=== PATIENT | male | born 1980 | race African-American/Black ===

== ENCOUNTER 2017-01-30 17:56 | Emergency (ER) | payer BC, OTHER ==
[2017-01-30 18:03] VITALS: BP 115/75; PULSE 68; TEMP 98; BMI 27.8
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
== END 2017-01-30 21:40 | disposition home or self-care (01) ==
LOC: JERFT 17:56
DX: M62.838 Other muscle spasm (principal); V43.52XA Car driver injured in collision with other type car in traffic accident, initial encounter; Y93.89 Activity, other specified; Y92.410 Unspecified street and highway as the place of occurrence of the external cause
CPT/HCPCS: 72050-TC; 99281-25

== ENCOUNTER 2017-02-09 12:33 | Emergency (ER) | payer OTHER, BC ==
[2017-02-09 12:52] VITALS: BP 138/75; PULSE 77; TEMP 98; BMI 27.8
[2017-02-09] MEDS ORDERED: KETOROLAC TROMETHAMINE 60 MG/2 ML VIAL IM ONE (13:12)
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
== END 2017-02-09 13:54 | disposition home or self-care (01) ==
LOC: JERFT 12:33
PROC: 3E0233Z Introduction of Anti-inflammatory into Muscle, Percutaneous Approach (ICD-10-PCS; principal; 2017-02-09)
DX: M75.42 Impingement syndrome of left shoulder (principal); X50.0XXA Overexertion from strenuous movement or load, initial encounter; X50.9XXA Other and unspecified overexertion or strenuous movements or postures, initial encounter; Y93.89 Activity, other specified; Y92.89 Other specified places as the place of occurrence of the external cause; Y99.0 Civilian activity done for income or pay
CPT/HCPCS: 99281-25

== ENCOUNTER 2017-03-04 15:50 | Emergency (ER) | payer OTHER ==
[2017-03-04 16:23] VITALS: BMI 27.8
[2017-03-04] MEDS ORDERED: SODIUM CHLORIDE 1,000 ML IV STA (16:38)
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
[2017-03-04 17:55] LABS: BASOPHIL 0.3 % (0-2.0); EOSINOPHIL 1.3 % (0-4.5); MCHC 33.3 g/dl (32.0-35.9); MEAN CELL VOLUME 93.3 fl (80-96); MEAN PLT VOLUME 10.7 fl (7.5-11.1); NEUTROPHILS 80.1 % (42.8-82.8); PLATELET COUNT 165 K/MM3 (134-434); RDW 12.6 % (11.9-15.9); WHITE BLOOD COUNT 11.3 K/mm3 (4.0-10.0)
[2017-03-04 18:12] LABS: ARTERIAL BLD GAS O2 SATURATION 97.1 % (90-98.9); ARTERIAL BLOOD GAS BASE EXCESS -1.8 meq/l (-2-2); ARTERIAL BLOOD GAS HCO3 22.6 meq/L (22-26); ARTERIAL BLOOD GAS PO2 92.7 mmHg (80-100)
[2017-03-04 18:21] LABS: METHEMOGLOBIN 0.6 % (0.4-1.5)
[2017-03-04 18:31] LABS: LPM/O2% 2L; PT. ON O2? YES; TYPE OF O2 NASAL
[2017-03-04 18:32] LABS: ARTERIAL BLOOD GAS pH 7.38 (7.35-7.45)
[2017-03-04 18:38] LABS: ALBUMIN 4.3 g/dl (3.4-5.0); CALCIUM 9.1 mg/dL (8.5-10.1); COCKROFT - GAULT 76.33; CREATININE 1.7 mg/dL (0.7-1.3)
[2017-03-04 18:39] LABS: BILIRUBIN,TOTAL 0.8 mg/dL (0.2-1.0); TOT PROT 7.8 g/dl (6.4-8.2)
[2017-03-04 19:02] VITALS: BP 127/71; PULSE 18; TEMP 98.1
== END 2017-03-04 19:02 | disposition home or self-care (01) ==
LOC: JER 15:50
PROC: 3E0337Z Introduction of Electrolytic and Water Balance Substance into Peripheral Vein, Percutaneous Approach (ICD-10-PCS; principal; 2017-03-04)
DX: J70.5 Respiratory conditions due to smoke inhalation (principal); T67.5XXA Heat exhaustion, unspecified, initial encounter; X02.0XXA Exposure to flames in controlled fire in building or structure, initial encounter; Y93.89 Activity, other specified; Y92.61 Building [any] under construction as the place of occurrence of the external cause; Y99.0 Civilian activity done for income or pay
CPT/HCPCS: 36415; 36600; 80053; 82375; 82803; 83050; 85025; 99284-25

== ENCOUNTER 2017-04-12 17:31 | Emergency (ER) | payer OTHER ==
[2017-04-12 17:52] VITALS: BP 118/87; PULSE 93; TEMP 97.5; BMI 27.8
[2017-04-12] MEDS ORDERED: KETOROLAC TROMETHAMINE 60 MG/2 ML VIAL IM ONE (18:03)
[2017-04-12] MEDS ORDERED: KETOROLAC TROMETHAMINE 60 MG/2 ML VIAL ONE (18:11)
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
== END 2017-04-12 18:29 | disposition home or self-care (01) ==
LOC: JERFT 17:31
PROC: 3E0233Z Introduction of Anti-inflammatory into Muscle, Percutaneous Approach (ICD-10-PCS; principal; 2017-04-12)
DX: S39.82XA Other specified injuries of lower back, initial encounter (principal); X02.8XXA Other exposure to controlled fire in building or structure, initial encounter; Y93.89 Activity, other specified; Y92.098 Other place in other non-institutional residence as the place of occurrence of the external cause; Y99.0 Civilian activity done for income or pay
CPT/HCPCS: 99281-25

== ENCOUNTER 2019-02-18 12:03 | Emergency (ER) | payer OTHER ==
[2019-02-18 12:14] VITALS: BP 109/70; PULSE 95; TEMP 97.8; BMI 27.8
[2019-02-18] MEDS ORDERED: DIPHTH,PERTUSS(ACELL),TET 0.5 ML DISP.SYRIN IM ONE ×2 (12:38→12:42)
--- NOTE | 2019-02-18 12:44 | PDOC ---
History of Present Illness - General Chief Complaint: Laceration Stated Complaint: HAND INJURY Time Seen by Provider: 02/18/19 12:29 History Source: Patient Exam Limitations: No Limitations - History of Present Illness Initial Comments: 02/18/19 13:19 38 year old male with medical history of pulmonary embolism and no surgical history presents today with laceration to right hand. 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 Denies fever or chills or pain at site, cannot recall last tetanus vaccine. Timing/Duration: reports: just prior to arrival Severity: Yes: mild Location: reports: hands Respiratory Risk Factors: reports: no cause identified Modifying Factors: improves with: other Associated Symptoms: denies: change in skin texture, edema, fever Past History - Travel Traveled outside of the country in the last 30 days: No Close contact w/someone who was outside of country & ill: No - Past Medical History Allergies/Adverse Reactions: Allergies Allergy/AdvReac Type Severity Reaction Status Date / Time No Known Allergies Allergy Verified 02/18/19 12:12 Home Medications: Ambulatory Orders NK [No Known Home Medication] 02/18/19 Anemia: No Asthma: No Cancer: No Cardiac Disorders: No CVA: No COPD: No CHF: No Dementia: No Diabetes: No GI Disorders: No Disorders: No HTN: No Hypercholesterolemia: No Liver Disease: No Seizures: No Thyroid Disease: No - Surgical History Abdominal Surgery: No Appendectomy: No Cardiac Surgery: No Cholecystectomy: No Lung Surgery: No Neurologic Surgery: No Orthopedic Surgery: No - Immunization History Immunization Up to Date: No - Suicide/Smoking/Psychosocial Hx Smoking Status: No Smoking History: Never smoked Have you smoked in the past 12 months: No Number of Cigarettes Smoked Daily: 0 Hx Alcohol Use: No Drug/Substance Use Hx: No Substance Use Type: None Hx Substance Use Treatment: No Review of Systems - Review of Systems Able to Perform ROS?: Yes Is the patient limited Liberian proficient: No Constitutional: No: Chills, Fever, Weakness HEENTM: No: Nose Congestion, Throat Swelling Respiratory: No: Orthopnea, Shortness of Breath, Productive cough Cardiac (ROS): No: Edema, Syncope : No: Burning, Dysuria Integumentary: Yes: Other (laceration to right hand ) Psychiatric: No: Stressors Hematologic/Lymphatic: No: Anemia *Physical Exam - Vital Signs Last Vital Signs Temp Pulse Resp BP Pulse Ox 97.8 F 95 H 16 109/70 99 02/18/19 12:12 02/18/19 12:12 02/18/19 12:12 02/18/19 12:12 02/18/19 12:12 - Physical Exam General Appearance: Yes: Nourished, Appropriately Dressed HEENT: positive: SURAJ. negative: Tonsillar Exudate, Rhinorrhea Neck: positive: Supple. 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, Alert, Motor Strength 5/5 Procedures - Laceration/Wound Repair Right Dorsal Hand Wound Length: to 2.5 cm Wound's Depth, Shape: superficial Irrigated w/ Saline: Yes Betadine Prep: Yes Anesthesia: 2% Lidocaine Wound Debrided: minimal Wound Repaired With: Sutures Suture Size/Type: 4:0 Number of Sutures: 4 Layer Closure: No Sterile Dressing Applied: No Splint Applied: No Sling Applied: No Medical Decision Making - Medical Decision Making 02/18/19 13:23 38 year old male with medical history of pulmonary embolism and no surgical history presents today with laceration to right hand Plan D: laceration of right hand Plan: laceration repair tetanus vaccine *DC/Admit/Observation/Transfer Diagnosis at time of Disposition: Laceration - Discharge Dispostion Disposition: HOME Condition at time of disposition: Good Decision to Admit order: No - Referrals Referrals: Olga Stokes MD [Primary Care Provider] - - Patient Instructions Printed Discharge Instructions: DI for Laceration Repair - Post Discharge Activity Forms/Work/School Notes: Back to Work
== END 2019-02-18 13:29 | disposition home or self-care (01) ==
LOC: JERFT 12:03
PROC: 3E0234Z Introduction of Serum, Toxoid and Vaccine into Muscle, Percutaneous Approach (ICD-10-PCS; principal; 2019-02-18)
PROC: 0HQFXZZ Repair Right Hand Skin, External Approach (ICD-10-PCS; 2019-02-18)
DX: S61.411A Laceration without foreign body of right hand, initial encounter (principal); W22.8XXA Striking against or struck by other objects, initial encounter; Y93.89 Activity, other specified; Y92.89 Other specified places as the place of occurrence of the external cause; Y99.0 Civilian activity done for income or pay
CPT/HCPCS: 90715; 99281-25

== ENCOUNTER 2019-03-03 14:14 | Emergency (ER) | payer OTHER ==
--- NOTE | 2019-03-03 14:31 | PDOC ---
Rapid Medical Evaluation Chief Complaint: Suture/Staple Removal(Here) Time Seen by Provider: 03/03/19 14:29 Medical Evaluation: Allergies Allergy/AdvReac Type Severity Reaction Status Date / Time No Known Allergies Allergy Verified 02/18/19 12:12 03/03/19 14:30 I have performed a brief in-person evaluation of this patient. The patient presents with a chief complaint of: suture removal- noted pus from site last PM Pertinent physical exam findings: well approx no evidence of cellulitis I have ordered the following: nothing The patient will proceed to the ED for further evaluation. Discharge Disposition - Diagnosis Visit for suture removal - Referrals - Patient Instructions - Post Discharge Activity
[2019-03-03 14:32] VITALS: BP 119/69; PULSE 82; TEMP 97.8; BMI 27.8
--- NOTE | 2019-03-03 14:50 | PDOC ---
Suture Removal/Wound Check HPI - History of Present Illness Chief Complaint: Suture/Staple Removal(Here) Stated Complaint: STITCH REMOVAL Time Seen by Provider: 03/03/19 14:29 History Source: Yes: Patient Exam Limitations: Yes: No Limitations Past History - Past Medical History Allergies/Adverse Reactions: Allergies Allergy/AdvReac Type Severity Reaction Status Date / Time No Known Allergies Allergy Verified 03/03/19 14:30 Home Medications: Ambulatory Orders NK [No Known Home Medication] 02/18/19 Anemia: No Asthma: No Cancer: No Cardiac Disorders: No CVA: No COPD: No CHF: No Dementia: No Diabetes: No GI Disorders: No Disorders: No HTN: No Hypercholesterolemia: No Liver Disease: No Seizures: No Thyroid Disease: No - Surgical History Abdominal Surgery: No Appendectomy: No Cardiac Surgery: No Cholecystectomy: No Lung Surgery: No Neurologic Surgery: No Orthopedic Surgery: No - Immunization History Immunization Up to Date: No - Suicide/Smoking/Psychosocial Hx Smoking Status: No Smoking History: Never smoked Have you smoked in the past 12 months: No Number of Cigarettes Smoked Daily: 0 Hx Alcohol Use: No Drug/Substance Use Hx: No Substance Use Type: None Hx Substance Use Treatment: No Suture Removal/Wound Check PE - Physical Exam Laceration/Wound Check Symptoms: reports: Improved, Resolved. denies: Pain, Fever, Chills, Redness, Discharge, Bleeding Current Severity Level: None Pain Localization: None Location of Laceration/Wound: left: Hand Comments: No induration or fluctuance to site, no erythema, site healed well 03/03/19 14:49 *Physical Exam - Vital Signs Last Vital Signs Temp Pulse Resp BP Pulse Ox 97.8 F 82 17 119/69 96 03/03/19 14:30 03/03/19 14:30 03/03/19 14:30 03/03/19 14:30 03/03/19 14:30 Medical Decision Making - Medical Decision Making 38 y/o M with hx of PE (not on blood thinners) presents for suture removal s/p lac repair to L hand on 02/18. Mentions noting some whitish discharge from site yesterday and slight pain. Denies pustular drainage, fever, redness, chills. PE with no evidence of infection Sutures removed Patient reassured Stable for dc 03/03/19 14:48 *DC/Admit/Observation/Transfer Diagnosis at time of Disposition: Visit for suture removal - Discharge Dispostion Disposition: HOME Condition at time of disposition: Stable Decision to Admit order: No - Referrals - Patient Instructions Printed Discharge Instructions: DI for Suture Removal - Post Discharge Activity
== END 2019-03-03 14:51 | disposition home or self-care (01) ==
LOC: JERFT 14:14
DX: Z48.817 Encounter for surgical aftercare following surgery on the skin and subcutaneous tissue (principal); Z48.02 Encounter for removal of sutures
CPT/HCPCS: 99281-25

== ENCOUNTER 2020-04-27 00:11 | Emergency (ER) | payer OTHER ==
[2020-04-27 00:19] VITALS: TEMP 98.2; BMI 27.1
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
[2020-04-27] MEDS ORDERED: SODIUM CHLORIDE 0.9% 500 ML INFUS.BAG IV ONE (01:19)
[2020-04-27 01:42] LABS: BASO % 0.8 % (0-2.0); EOS % 5.5 % (0-4.5); HEMATOCRIT 39.8 % (35.4-49); HEMOGLOBIN 13.2 GM/dL (11.7-16.9); LYMPH % 30.7 % (8-40); MCH 30.9 pg (25.7-33.7); MCHC 33.1 g/dl (32.0-35.9); MEAN CELL VOLUME 93.2 fl (80-96); MEAN PLT VOLUME 11.5 fl (7.5-11.1); MONO % 7.8 % (3.8-10.2); NEUT % 55.2 % (42.8-82.8); PLATELET COUNT 149 K/MM3 (134-434); RBC 4.27 M/mm3 (4.00-5.60); RDW 12.8 % (11.9-15.9); WHITE BLOOD COUNT 6.6 K/mm3 (4.0-10.0)
[2020-04-27 02:01] LABS: PH,URINE 6.5 (5.0-8.0); URINE APPEARANCE CLEAR; URINE BILIRUBIN NEGATIVE (NEGATIVE); URINE COLOR YELLOW; URINE GLUCOSE (UA) NEGATIVE (NEGATIVE); URINE KETONE NEGATIVE (NEGATIVE); URINE LEUK ESTERASE NEGATIVE (NEGATIVE); URINE NITRITE NEGATIVE (NEGATIVE); URINE PROTEIN NEGATIVE (NEGATIVE)
[2020-04-27 02:12] LABS: ALBUMIN 3.8 g/dl (3.4-5.0); ALK PHOS 74 U/L (45-117); ANION GAP 5 MMOL/L (8-16); BILIRUBIN,TOTAL 0.4 mg/dL (0.2-1); BLOOD UREA NITROGEN 21.9 mg/dL (7-18); CALCIUM 8.6 mg/dL (8.5-10.1); CHLORIDE 105 mmol/L (98-107); CO2 27 mmol/L (21-32); CREATININE 1.2 mg/dL (0.55-1.3); GLUCOSE,RANDOM 97 mg/dL (74-106); SGOT/AST 18 U/L (15-37); SGPT/ALT 20 U/L (13-61); SODIUM 137 mmol/L (136-145)
[2020-04-27 06:07] VITALS: BP 116/60; PULSE 66
--- NOTE | 2020-04-27 11:35 | EKG ---
Test Reason : Blood Pressure : / mmHG Vent. Rate : 073 BPM Atrial Rate : 073 BPM P-R Int : 136 ms QRS Dur : 088 ms QT Int : 358 ms P-R-T Axes : 060 038 029 degrees QTc Int : 394 ms NORMAL SINUS RHYTHM NORMAL ECG WHEN COMPARED WITH ECG OF 31-MAY-2019 14:24, NO SIGNIFICANT CHANGE WAS FOUND Confirmed by CAMMY MELENDEZ MD ([id number]) on 04/27/2020 11:35:05 AM Referred By: Confirmed By:CAMMY MELENDEZ MD
== END 2020-04-27 06:07 | disposition home or self-care (01) ==
LOC: JER 00:11
DX: T75.4XXA Electrocution, initial encounter (principal)
CPT/HCPCS: 36415; 80053; 81003; 82550; 82553; 84484; 85025; 93005; 93010; 99284-25

== ENCOUNTER 2020-09-24 04:01 | Inpatient (IN) | payer BC, OTHER ==
[2020-09-24 04:47] LABS: BASO % 0.6 % (0-2.0); EOS % 6.1 % (0-4.5); HEMATOCRIT 40.7 % (35.4-49); HEMOGLOBIN 13.6 GM/dL (11.7-16.9); LYMPH % 31.4 % (8-40); MCH 30.3 pg (25.7-33.7); MCHC 33.5 g/dl (32.0-35.9); MEAN CELL VOLUME 90.3 fl (80-96); MEAN PLT VOLUME 10.4 fl (7.5-11.1); MONO % 7.9 % (3.8-10.2); PLATELET COUNT 155 K/MM3 (134-434); RBC 4.51 M/mm3 (4.00-5.60); RDW 12.1 % (11.9-15.9); WHITE BLOOD COUNT 7.3 K/mm3 (4.0-10.0)
[2020-09-24 05:07] LABS: ALBUMIN 3.6 g/dl (3.4-5.0); BLOOD UREA NITROGEN 17.7 mg/dL (7-18); CALCIUM 8.2 mg/dL (8.5-10.1)
[2020-09-24 05:12] LABS: CREATININE 1.1 mg/dL (0.55-1.3)
[2020-09-24 05:13] LABS: BILIRUBIN,TOTAL 0.4 mg/dL (0.2-1); TOT PROT 7.2 g/dl (6.4-8.2)
[2020-09-24 05:23] LABS: INR 0.97 (0.83-1.09)
[2020-09-24 05:26] LABS: ACTIVATED PTT 30.1 SECONDS (25.2-36.5)
[2020-09-24] MEDS ORDERED: ENOXAPARIN NA (PORCINE) 80 MG/0.8 ML DISP.SYRIN SQ ONE (08:01)
[2020-09-24] MEDS ORDERED: ACETAMINOPHEN 325 MG TABLET (FP) PO PRN (08:15)
[2020-09-24] MEDS ORDERED: ENOXAPARIN NA (PORCINE) 100 MG/1 ML DISP.SYRIN SQ ONE (08:34)
[2020-09-24] MEDS ORDERED: PANTOPRAZOLE 40 MG TABLET ONE (08:35)
[2020-09-24] MEDS: PANTOPRAZOLE 40 MG TABLET PO SCH (10:03)
[2020-09-24] MEDS ORDERED: APIXABAN 5 MG TABLET PO SCH (10:45)
[2020-09-24] MEDS ORDERED: APIXABAN 5 MG TABLET ONE ×2 (11:24→17:23)
[2020-09-24] MEDS ORDERED: APIXABAN 5 MG TABLET PO ONE (15:20)
[2020-09-24 21:25] VITALS: BMI 28.3
[2020-09-24] MEDS: APIXABAN 5 MG TABLET PO SCH (21:50)
[2020-09-25] MEDS: APIXABAN 5 MG TABLET PO SCH (09:15)
[2020-09-25] MEDS: PANTOPRAZOLE 40 MG TABLET PO SCH (09:16)
[2020-09-25 11:19] VITALS: BP 120/65; PULSE 66; TEMP 98
[2020-10-01] MEDS ORDERED: APIXABAN 5 MG TABLET PO SCH (10:00)
== END 2020-09-25 15:26 | disposition home or self-care (01) | DRG 176 ==
LOC: JER 04:01 → JERBED 08:16 → J4W 20:26
PROVIDERS: ADMIT Family Medicine; ATTEND Family Medicine
DX: I26.99 Other pulmonary embolism without acute cor pulmonale (principal); R07.9 Chest pain, unspecified
CPT/HCPCS: 36415; 71275-TC; 80053; 84484; 85025; 85610; 85730; 93005; 93010; 93306-TC; 94010; 99285-25; C9803; Q9967; U0003

== ENCOUNTER 2021-11-08 21:43 | Emergency (ER) | payer BC ==
[2021-11-08 21:52] VITALS: BP 123/81; PULSE 82; TEMP 98.2; BMI 28.5
[2021-11-08] MEDS ORDERED: ACETAMINOPHEN 500 MG TABLET (FP) PO ONE (23:14)
[2021-11-08] MEDS ORDERED: ACETAMINOPHEN 325 MG TABLET (FP) ONE (23:22)
== END 2021-11-08 23:45 | disposition home or self-care (01) ==
LOC: JER 21:43 → JERFT 21:43 → JER 23:45
DX: M79.661 Pain in right lower leg (principal)
CPT/HCPCS: 93971-TC; 99284-25

== ENCOUNTER 2022-01-28 12:27 | Emergency (ER) | payer OTHER, BC ==
[2022-01-28 12:41] VITALS: BP 131/81; PULSE 74; TEMP 97.7; BMI 27.8
== END 2022-01-28 13:29 | disposition home or self-care (01) ==
LOC: JERFT 12:27
DX: S66.912A Strain of unspecified muscle, fascia and tendon at wrist and hand level, left hand, initial encounter (principal); M62.838 Other muscle spasm; X50.0XXA Overexertion from strenuous movement or load, initial encounter
CPT/HCPCS: 73110-TC-LT-FY; 99283-25

== ENCOUNTER 2024-04-02 19:41 | Emergency (ER) | payer OTHER ==
[2024-04-02 19:47] VITALS: BP 114/73; PULSE 69; RESP 18; TEMP 98.7; BMI 27.8
[2024-04-02] MEDS ORDERED: IBUPROFEN 600 MG TABLET (FP) PO ONE (20:08)
[2024-04-02] MEDS ORDERED: ACETAMINOPHEN 500 MG TABLET (FP) ONE (20:08)
[2024-04-02] MEDS: ACETAMINOPHEN 500 MG TABLET (FP) PO ONE (20:10)
[2024-04-02] MEDS: IBUPROFEN 600 MG TABLET (FP) PO ONE (20:10)
== END 2024-04-02 20:54 | disposition home or self-care (01) ==
LOC: JERFT 19:41
PROC: 2W3KX1Z Immobilization of Left Finger using Splint (ICD-10-PCS; principal; 2024-04-02)
DX: S62.633A Displaced fracture of distal phalanx of left middle finger, initial encounter for closed fracture (principal); W23.1XXA Caught, crushed, jammed, or pinched between stationary objects, initial encounter
CPT/HCPCS: 73130-TC-LT-FY; 99283-25